=== PATIENT | male | born 1960 | race African-American/Black ===

== ENCOUNTER 2022-07-04 15:17 | Emergency (ER) | payer OTHER ==
[~2022-07-04] VITALS: Ht 170.2 cm; Wt 63.5 kg
[2022-07-04 15:32] VITALS: BP 135/82
[2022-07-04] MEDS ORDERED: GABAPENTIN 100 MG CAPSULE PO ONE (16:30)
[2022-07-04] MEDS ORDERED: KETOROLAC TROMETHAMINE INJ 60 MG/2 ML VIAL IM ONE (16:30)
[2022-07-04] MEDS ORDERED: KETOROLAC TROMETHAMINE INJ 30 MG/ML VIAL ONE (16:31)
[2022-07-04] MEDS ORDERED: GABAPENTIN 100 MG CAPSULE ONE (16:32)
--- NOTE | 2022-07-04 16:41 | NUR ---
BIB [facility] FROM HOME,WORSENING BACK PAIN SINCE AFTER HIS BACK SX 3 DAYS AGO. PLACED ON BED, AAOX4, BREATHING EVEN AND UNLABORED, IN PAIN 10/10 PS
--- NOTE | 2022-07-04 17:09 | NUR ---
DR REYNOLDS CALLED AT [phone],ON -CALL TODAY IS DR Melania GIBSON, MESSAGE LEFT TO GIVE US A CALL BACK
--- NOTE | 2022-07-04 17:11 | NUR ---
call back from [facility] espino to dr Mullins
--- NOTE | 2022-07-04 17:45 | NUR ---
TEXT DR. LANDA FOR MRI APPROVAL.
--- NOTE | 2022-07-04 17:55 | NUR ---
HOOK TENDER AT BEDSIDE
[2022-07-04 18:12] LABS: BASOPHILS % (AUTO) 0.4 % (0.0-2.0); EOSINOPHILS % (AUTO) 1.3 % (0.0-6.0); HEMATOCRIT 37 % (39-51); HEMOGLOBIN 11.4 g/dL (13.5-17.5); LYMPHOCYTES # (AUTO) 1.9 K/uL (0.8-4.8); LYMPHOCYTES % (AUTO) 20.3 % (20.0-44.0); MEAN CORPUSCULAR HGB CONC 31 g/dl (31.0-36.0); MEAN CORPUSCULAR VOLUME 75 fL (80-96); MONOCYTES # (AUTO) 0.4 K/uL (0.1-1.30); MONOCYTES % (AUTO) 4.7 % (2.0-12.0); NEUTROPHILS # (AUTO) 6.8 K/uL (1.8-8.9); NEUTROPHILS % (AUTO) 73.3 % (43.0-81.0); PLATELET COUNT (AUTO) 170 K/uL (150-450); RED BLOOD CELL COUNT(AUTO) 4.87 MIL/uL (4.5-6.0); WHITE BLOOD COUNT (AUTO) 9.3 K/uL (4.3-11.0)
[2022-07-04 18:41] LABS: CALCIUM, SERUM 7.8 mg/dL (8.5-10.1); CREATININE 0.9 mg/dL (0.6-1.3); POTASSIUM 3.4 mmol/L (3.5-5.1)
[2022-07-04 19:02] LABS: C-REACTIVE PROTEIN 22.5 mg/dL (0.0-0.9)
[2022-07-04] MEDS ORDERED: POTASSIUM CHLORIDE 20 MEQ TAB.PRT.SR PO ONE ×2 (19:30→21:18)
[2022-07-04] MEDS ORDERED: POTASSIUM CHLORIDE 10 MEQ TABLET.SA ONE (21:20)
[2022-07-04] MEDS ORDERED: LORAZEPAM INJ 2 MG/ML VIAL IV ONE (22:00)
[2022-07-04] MEDS ORDERED: LORAZEPAM INJ 2 MG/ML VIAL ONE (22:01)
--- NOTE | 2022-07-04 22:11 | NUR ---
PT TAKEN TO MRI VIA GURMY. ADMINISTERED ATIVAN IVP FOR ANXIETY PRIOR ORDERED.
--- NOTE | 2022-07-04 23:03 | NUR ---
PT RETURNED TO ER BED [address]; PT TOLERATED PROCEDURE WELL
--- NOTE | 2022-07-05 00:09 | NUR ---
SENT IMAGES TO DR MEANS
--- NOTE | 2022-07-05 00:24 | NUR ---
DR. ANAYA MONTES ON PHONE CALL WITH DR. MEANS
[2022-07-05] MEDS ORDERED: HYDROCODONE/APAP 10/325MG TABLET PO ONE (00:30)
[2022-07-05] MEDS ORDERED: HYDROCODONE/APAP 10/325MG TABLET ONE (00:32)
--- NOTE | 2022-07-05 01:11 | NUR ---
COVID ANTIGEN SWAB COLLECTED AND SENT TO LAB
--- NOTE | 2022-07-05 01:18 | NUR ---
CALLED [facility]. PER JEANNETTE THEY'RE AT [facility]
--- NOTE | 2022-07-05 02:02 | NUR ---
[facility] [phone]
--- NOTE | 2022-07-05 02:13 | NUR ---
Called [facility] alert center for possible transfer for higher level of care. on hold for 15 minutes with no answer. per skein mercerizing machine operator zion for the day.
--- NOTE | 2022-07-05 02:21 | NUR ---
Note huongreta in EDM - 07/05/22 at 0613 by MIKALA Patient does not wish to proceed with medical care recommended by Dr. Kingston. Patient given information related to possible complications, up to and including , which could occur as a result of leaving the hospital at this time. Patient verbalizes understanding of risks involved due to leaving against medical advice. Patient has signed AMA form. IV removed. Catheter intact and site benign. Pressure and 4x4 applied to site. No bleeding noted.
--- NOTE | 2022-07-05 02:21 | NUR ---
Patient eloped from facility. ER MD notified.
[2022-07-05 04:47] LABS: BASOPHILS % (MANUAL) 0 % (0.0-2.0); EOSINOPHILS % (MANUAL) 0 % (0-4); LYMPHOCYTES % (MANUAL) 17 % (16-48); MONOCYTES % (MANUAL) 7 % (0-11.0); NEUTROPHILS % (MANUAL) 74 (42-76)
== END 2022-07-05 02:21 | disposition left against medical advice (07) ==
LOC: ER 15:20
DX: G89.18 Other acute postprocedural pain (principal); Z98.1 Arthrodesis status; M51.26 Other intervertebral disc displacement, lumbar region; M25.78 Osteophyte, vertebrae; J45.909 Unspecified asthma, uncomplicated; E87.6 Hypokalemia; E87.1 Hypo-osmolality and hyponatremia; Z20.822 Contact with and (suspected) exposure to COVID-19
CPT/HCPCS: 99284; 72148; 96374; 72131; 85025; 80048; 85652; 36415; 86140; 96372; 87426; 85007; J2060; J1885; C9803